=== PATIENT | male | born 1985 | race Caucasian/White ===

== ENCOUNTER 2020-10-05 07:02 | Outpatient (CLI) | payer BC, SELFPAY ==
[2020-10-05 07:47] LABS: SARS-CoV-2 Ag Negative (Negative)
== END 2020-10-05 07:03 | disposition home or self-care (01) ==
LOC: CHSLAB 07:07
PROVIDERS: PCP Family Medicine; Visit Provider Nurse Practitioner
DX: R09.89 Other specified symptoms and signs involving the circulatory and respiratory systems (principal); Z20.828 Contact with and (suspected) exposure to other viral communicable diseases
CPT/HCPCS: 87426

== ENCOUNTER 2021-05-28 08:14 | Outpatient (CLI) | payer BC, SELFPAY ==
[2021-05-28 09:26] LABS: SARS-CoV-2 Ag Negative (Negative)
== END 2021-05-28 08:15 | disposition home or self-care (01) ==
LOC: CHSLAB 08:18
PROVIDERS: PCP Nurse Practitioner; Visit Provider Family Medicine
DX: Z20.822 Contact with and (suspected) exposure to COVID-19 (principal)
CPT/HCPCS: 87426; C9803